=== PATIENT | female | born 1950 | race Caucasian/White ===

== ENCOUNTER 2017-12-15 10:05 | Emergency (ER) | payer MEDICARE, BC ==
[~2017-12-15] VITALS: Ht 170.2 cm; Wt 127.0 kg
[~2017-12-15 10:05] MED LIST: ATOR40TA59 PO; DULO60CA6 PO; HYDR25TA9 PO; LEVO175T5 PO; LEVO500T59 PO; MELO7.5T29 PO; OMEP20TA63 PO; OXYC-323 PO; QUIN20TA17 PO; TRAZ-85 PO
--- NOTE | 2017-12-15 10:42 | PHYS DOC ---
Past History Past Medical History: Arthritis, Hypertension Past Surgical History: Hip Replacement, Knee Replacement Alcohol Use: None Drug Use: None Adult General Chief Complaint Chief Complaint: MECHANICAL FALL HPI HPI Patient is a 67 year old female who presents with complaint of right wrist, knee , and elbow pain. Patient states that she suffered an accidental fall outdoors shortly prior to arrival. Patient states that while working in her garden she lost her balance and fell onto her right side. Patient states that she scraped her right knee but states that she has been able to bear full weight and ambulate without difficulty since the fall. Patient states that the area on her body that hurts the worst is her right wrist. Patient states that she did fall onto her wrist and elbow but did not hit her head or lose consciousness. Patient is not currently on any blood thinners. Patient states that she is able to move her right elbow normally and does not feel that she has any broken bones but is concerned most about her right wrist. Patient has not taken medications since her fall. Patient rates her pain on my evaluation as 8 out of 10. Review of Systems Review of Systems Constitutional: Denies fever or chills [] Eyes: Denies change in visual acuity, redness, or eye pain [] HENT: Denies nasal congestion or sore throat [] Respiratory: Denies cough or shortness of breath [] Cardiovascular: Denies chest pain or edema[] GI: Denies abdominal pain, nausea, vomiting, bloody stools or diarrhea [] : Denies dysuria or hematuria [] Musculoskeletal: Right wrist pain, right knee pain, right elbow pain[] Integument: Denies rash or skin lesions [] Neurologic: Denies headache, focal weakness or sensory changes [] All other systems were reviewed and found to be within normal limits, except as documented in this note. Allergies Allergies Allergies Coded Allergies Type Severity Reaction Last Updated Verified codeine Allergy Intermediate 07/24/14 Yes morphine Allergy Intermediate 07/24/14 Yes Physical Exam Physical Exam Constitutional: Alert, afebrile, no acute distress. [] HENT: Normocephalic, atraumatic, bilateral external ears normal, oropharynx moist, no oral exudates, nose normal. [] Eyes: PERRLA, EOMI, conjunctiva normal, no discharge. [] Neck: Normal range of motion, no tenderness, supple, no stridor. [] Cardiovascular:Heart rate regular rhythm, no murmur [] Lungs & Thorax: Bilateral breath sounds clear to auscultation [] Abdomen: Bowel sounds normal, soft, no tenderness, no masses, no pulsatile masses. [] Skin: Warm, dry, no erythema, no rash. [] Back: No tenderness, no CVA tenderness. [] Extremities: Dorsal right wrist tenderness towards base of right thumb, limited range of motion in right wrist secondary to pain, full range of motion in right elbow with minimal tenderness to palpation, anterior abrasion overlying right knee with lateral soft tissue swelling, full range of motion present, pulses 2+ distally in all extremities. [] Neurologic: Alert and oriented X 3, normal motor function, normal sensory function, no focal deficits noted. [] Current Patient Data Vital Signs Vital Signs Date Time Temp Pulse Resp B/P (MAP) Pulse Ox O2 Delivery O2 Flow Rate FiO2 12/15/17 10:19 98.1 87 24 97 Room Air Lab Results None performed EKG EKG Not performed[] Radiology/Procedures Radiology/[place] [address] IMAGING REPORT Signed PATIENT: JACKY FRANKLIN ACCOUNT: [id number] : 1950 LOCATION: ER AGE: 67 SEX: F EXAM STATUS: PRE ER ORD. PHYSICIAN: CATINA LICONA MD REASON: right wrist injury PROCEDURE: WRIST 3V RIGHT 4 views of the right wrist without comparison for right wrist pain after fall. FINDINGS: There is no fracture, dislocation, or acute osseous abnormality identified. Advanced osteoarthritic changes are seen at the first carpometacarpal joint. No radiopaque foreign bodies. IMPRESSION: 1. No fracture or acute osseous abnormality. 2. Advanced osteoarthritis at the first carpometacarpal joint. Electronically signed by: Melvi Schuster MD (12/15/2017 10:40 AM) [facility] DICTATED AND SIGNED BY: MELVI SCHUSTER MD DATE: 12/15/17 1038 CC: CATINA LICONA MD ~ [] Course & Med Decision Making Course & Med Decision Making Pertinent Labs and Imaging studies reviewed. (See chart for details) X-rays of the right wrist are negative. Patient's symptoms appear consistent with right wrist sprain. Patient was given Velcro wrist splint in the emergency department for comfort. Advised to continue with gentle range of motion as tolerated. Advised use Tylenol as needed as directed on packaging for treatment of pain. Recommended follow-up in 1 week with primary doctor for reevaluation and return to emergency department for any worsening symptoms. Patient was understanding and agreement with treatment plan. Dragon Disclaimer Dragon Disclaimer This electronic medical record was generated, in whole or in part, using a voice recognition dictation system. Departure Departure: Impression: Primary Impression: Right wrist sprain Additional Impressions: Contusion of right knee Contusion of right elbow Fall from standing Disposition: 01 HOME, SELF-CARE Condition: STABLE Patient Instructions: Contusion, Joint Sprain Additional Instructions: Follow-up with her primary doctor in 1 week for reevaluation. Return to the emergency department for any worsening symptoms. Problem Qualifiers Primary Impression: Right wrist sprain Encounter type: initial encounter Qualified Codes: S63.501A - Unspecified sprain of right wrist, initial encounter Additional Impressions: Contusion of right knee Encounter type: initial encounter Qualified Codes: S80.01XA - Contusion of right knee, initial encounter Contusion of right elbow Encounter type: initial encounter Qualified Codes: S50.01XA - Contusion of right elbow, initial encounter Fall from standing Encounter type: initial encounter Qualified Codes: W19.XXXA - Unspecified fall, initial encounter CATINA LICONA MD Dec 15, 2017 10:42
[2017-12-15 12:45] VITALS: BP 138/80
== END 2017-12-15 11:50 | disposition home or self-care (01) ==
LOC: ER 10:05
DX: S63.501A Unspecified sprain of right wrist, initial encounter (principal); S80.01XA Contusion of right knee, initial encounter; S50.01XA Contusion of right elbow, initial encounter; M19.90 Unspecified osteoarthritis, unspecified site; I10 Essential (primary) hypertension; Z88.5 Allergy status to narcotic agent; M18.9 Osteoarthritis of first carpometacarpal joint, unspecified; Z96.649 Presence of unspecified artificial hip joint; Z96.659 Presence of unspecified artificial knee joint; W19.XXXA Unspecified fall, initial encounter; Y93.89 Activity, other specified; Y92.89 Other specified places as the place of occurrence of the external cause; Y99.8 Other external cause status
CPT/HCPCS: 29125; 73110; 99284

== ENCOUNTER → 2019-04-16 | Outpatient (CLI) | payer MEDICARE, BC ==
[~2019-04-16] MED LIST changes: +HYDR-2145 PO; -HYDR25TA9 PO; -OXYC-323 PO; +OXYC1TAB15 PO; +TRAZ-120 PO; -TRAZ-85 PO
--- NOTE | 2019-04-17 10:52 | RAD ---
Bone Densitometry History: Osteoporosis Findings: Bone Densitometry was performed with dual photon absorption of the lumbar spine and proximal femurs. Lumbar Spine: Bone density is 1.552 g/cm2 for L1-L4. T-score is 3.1. Z-score is 3.6. Left forearm: Bone density is 0.756 g/cm2. T-score is 0.6. Z-score is 2.1. IMPRESSION: Bone mineral densities of the lumbar spine and left forearm are normal. Lumbar spine bone mineral density results may be artifactually elevated due to degenerative change. World Health Organization definition of osteoporosis and osteopenia for women: normal equals T score at or above -1.0 standard deviations; osteopenia equals T score between -1.0 and -2.5 standard deviations; osteoporosis equals T score at or below -2.5 standard deviations. Electronically signed by: Sean Castanon MD (04/17/2019 10:49 AM) [facility]
== END | disposition home or self-care (01) ==
LOC: DXRAD 10:12
PROVIDERS: ATTEND Neurological Surgery
DX: M81.0 Age-related osteoporosis without current pathological fracture (principal)
CPT/HCPCS: 77080; 77081

== ENCOUNTER → 2020-11-12 | Outpatient (CLI) | payer MEDICARE, BC ==
--- NOTE | 2020-11-12 18:27 | RAD ---
EXAM: CT Chest without IV contrast CLINICAL HISTORY: LEFT RIB PAIN, NO INJURY, PAINFUL TO TAKE DEEP INSPIRATION COMPARISON: None. TECHNIQUE: CT of the chest without intravenous contrast. Axial, coronal and sagittal reformatted imag es were generated. ---PQRS compliance statement - One or more of the following individualized dose reduction techniques were utilized for this study: 1. Automated exposure control 2. Adjustment of the mA and/or kV according to patient size 3. Use of iterative reconstruction technique--- FINDINGS: Lack of intravenous contrast limits evaluation of solid organs, vasculature, and lymph nodes. Chest: Heart is not enlarged. No pericardial effusion. No pleural effusion or pneumothorax. No mediastinal or hilar lymphadenopathy. No axillary lymphadenopathy. 4 mm lingular lymph node. 6 mm right lower lobe lung nodule (series 2 image 70). 4 mm right lower lob e lung nodule (series 2 image 58). A few additional <6 mm lung nodules are seen. Visualized Upper abdomen: Unremarkable Bones: Degenerative changes of spine are seen. No definite rib fractures identified. No aggressive os seous lesion is seen. IMPRESSION: 1. No definite rib fracture is seen. 2. Multiple lung nodules are seen measuring less than 6 mm. Per Fleischner Society guidelines for in cidentally found solid nodules measuring less than 6 mm, no follow-up is necessary if patient is cons idered at low risk for lung cancer. If patient is considered to be at high risk, such as with history of smoking, then CT follow-up in about 12 months can be considered. Electronically signed by: Ced Abarca MD (11/12/2020 6:24 PM) [facility]
== END ==
LOC: RAD 17:50
PROVIDERS: ATTEND Nurse Practitioner Adult Health
DX: S22.32XA Fracture of one rib, left side, initial encounter for closed fracture (principal); R91.8 Other nonspecific abnormal finding of lung field; X58.XXXA Exposure to other specified factors, initial encounter; Y93.89 Activity, other specified; Y92.89 Other specified places as the place of occurrence of the external cause; Y99.8 Other external cause status
CPT/HCPCS: 71250

== ENCOUNTER → 2020-11-30 | Outpatient (CLI) | payer MEDICARE, BC ==
--- NOTE | 2020-11-30 16:07 | RAD ---
BILATERAL SCREENING MAMMOGRAM History: Routine screening. Comparison: Bilateral mammogram August 17, 2015. Technique: Routine digital mammogram views were obtained. Findings: Breast Tissue Density A : The breasts are almost entirely fatty. There are a few benign calcifications. There are no dominant masses, suspicious microcalcifications or architectural distortion. IMPRESSION: No mammographic evidence of malignancy. Recommend routine screening. BI-RADS category 1: Negative. The images were reviewed with computer aided detection. Patient information is entered into the reminder system with a target due date for the next screening mammogram. Mammography is the most sensitive method for finding small breast cancers, but it does not detect the m all and is not a substitute for careful clinical examination. A negative mammogram does not negate a clinically suspicious finding and should not result in delay in biopsying a clinically suspicious a bnormality. "Our facility is accredited by the [employer] Mammography Program." Electronically signed by: Kaleb May MD (11/30/2020 4:05 PM) [id number]
== END ==
LOC: MAMMO 10:52
PROVIDERS: ATTEND Nurse Practitioner Adult Health
DX: Z12.31 Encounter for screening mammogram for malignant neoplasm of breast (principal)
CPT/HCPCS: 77067

== ENCOUNTER 2021-09-18 17:16 | Emergency (ER) | payer MEDICARE, BC ==
[~2021-09-18] VITALS: Ht 170.2 cm; Wt 144.0 kg
[~2021-09-18 17:16] MED LIST changes: -DULO60CA6 PO; +DULO60CA7 PO
[2021-09-18 17:50] VITALS: BP 166/92
--- NOTE | 2021-09-18 17:55 | PHYS DOC ---
Past History Past Medical History: Arthritis, Hypertension Past Surgical History: Hip Replacement, Knee Replacement Alcohol Use: None Drug Use: None General Adult EDM: Chief Complaint: MECHANICAL FALL HPI: HPI: "I ve been out at [employer] all day.. made about 125 bucks.. but and linda tripped with my Lt. leg.. then went down on my RT leg.. 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 Patient has had previous knee replacement on the right. Can do straight leg lift. Does have some obvious swelling in the ankle area and tenderness along tibial plateau as well as an anterior paz. Patient is able to feel sensation and is equal to left foot. Patient has extensive medical history including bilateral hips replacement obesity, hypertension, spinal stenosis, and urinary tract infections.. Patient normally follows with Tamiko Caballero for primary. Review of Systems: Review of Systems: Constitutional: Denies fever or chills Eyes: Denies change in visual acuity HENT: Denies nasal congestion or sore throat Respiratory: Denies cough or shortness of breath Cardiovascular: Denies chest pain or edema GI: Denies abdominal pain, nausea, vomiting, bloody stools or diarrhea : Denies dysuria Musculoskeletal: Complains of ankle and leg sprain left Integument: Denies rash Neurologic: Denies headache, focal weakness or sensory changes Endocrine: Denies polyuria or polydipsia Lymphatic: Denies swollen glands Psychiatric: Denies depression or anxiety Family History: Family History: Noncontributory the presentation Current Medications: Current Meds: See nursing for home meds Allergies: Allergies: Allergies Coded Allergies Type Severity Reaction Last Updated Verified codeine Allergy Intermediate 07/24/14 Yes morphine Allergy Intermediate 07/24/14 Yes Physical Exam: PE: Constitutional: Moderate acute distress, non-toxic appearance. [] HENT: Normocephalic, atraumatic, bilateral external ears normal, oropharynx moist, no oral exudates, nose normal. [] Eyes: PERRLA, EOMI, conjunctiva normal, no discharge. [] Neck: Normal range of motion, no tenderness, supple, no stridor. Circumference more than 17 inches Cardiovascular:Heart rate regular rhythm, no murmur [] PMI slightly to left. Lungs & Thorax: Bilateral breath sounds equal apex with scattered wheezes auscultation [] Abdomen: Bowel sounds normal, soft, no tenderness, no masses, no pulsatile masses. Obese. Old surgery scars Skin: Warm, dry, no erythema, no rash. [] Back: No tenderness, no CVA tenderness. [] Extremities: No tenderness, no cyanosis, no clubbing, ROM intact, no edema. [] Except right leg injury and tenderness as per HPI. No cording appreciated Neurologic: Alert and oriented X 3, moves all extremities on request but guarded with right lower leg. Limited range of motion., no focal deficits noted. [] Psychologic: Affect anxious, judgement normal, mood normal. [] EKG: EKG: [] Radiology/Procedures: Radiology/Procedures: [][place] [address] IMAGING REPORT Signed PATIENT: JACKY FRANKLINCCOUNT: [id number] : 1950 LOCATION: ER AGE: 71 SEX: F EXAM STATUS: REG ER ORD. PHYSICIAN: IVELISSE COYLE MD REASON: fall PROCEDURE: TIBIA FIBULA RIGHT EXAM: 1. Right tibia/fibula 2 views. 2. Right ankle 3 views. HISTORY: Fall, pain. COMPARISON: None. FINDINGS: A right total knee arthroplasty is partially visualized in expected alignment. No fractures are noted within the proximal tibia/fibula. There are projectional limitations with rotation of the lateral projections. No fractures are appreciated about the right ankle. Joint spaces and alignment of the mortise are maintained. Changes of a chronic ligamentous injury are noted at the tip of the medial malleolus. Subcutaneous edema is noted along the distal leg. There is a small plantar calcaneal spur. IMPRESSION: 1. No fracture. Electronically signed by: Laura Dumont MD (09/18/2021 7:58 PM) [facility] DICTATED AND SIGNED BY: ELVER DUMONT MD DATE: 09/18/211939 CC: IVELISSE COYLE MD; JIM CABALLERO APRN ~ Heart Score: C/O Chest Pain: N/A Risk Factors: Risk Factors: DM, Current or recent (<one month) smoker, HTN, HLP, family history of CAD, obesity. Risk Scores: Score 0 - 3: 2.5% MACE over next 6 weeks - Discharge Home Score 4 - 6: 20.3% MACE over next 6 weeks - Admit for Clinical Observation Score 7 - 10: 72.7% MACE over next 6 weeks - Early Invasive Strategies Course & Med Decision Making: Course & Med Decision Making Pertinent Labs and Imaging studies reviewed. (See chart for details) Ice, elevation, rest, splint, crutches. Tylenol and ibuprofen for pain. Follow-up with Ortho of choice. Impression: 1. Trip and fall 2. Right ankle sprain [] Dragon Disclaimer: Dragon Disclaimer: This electronic medical record was generated, in whole or in part, using a voice recognition dictation system. Departure Departure: Referrals: JIM CABALLERO APRN (PCP) Dragon Disclaimer This chart was dictated in whole or in part using Voice Recognition software in a busy, high-work load, and often noisy Emergency Department environment. It may contain unintended and wholly unrecognized errors or omissions. Dragon Disclaimer This chart was dictated in whole or in part using Voice Recognition software in a busy, high-work load, and often noisy Emergency Department environment. It may contain unintended and wholly unrecognized errors or omissions. IVELISSE COYLE MD September 18, 2021 17:55
[2021-09-18] MEDS ORDERED: oxyCODONE/APAP 5/325 1 TAB TABLET PO ONE (18:30)
[2021-09-18] MEDS ORDERED: ONDANSETRON ODT 4 MG TAB.RAPDIS PO ONE (18:30)
[2021-09-18] MEDS ORDERED: FUROSEMIDE 40 MG/4 ML VIAL IVP ONE (19:45)
--- NOTE | 2021-09-18 20:00 | RAD ---
EXAM: 1. Right tibia/fibula 2 views. 2. Right ankle 3 views. HISTORY: Fall, pain. COMPARISON: None. FINDINGS: A right total knee arthroplasty is partially visualized in expected alignment. No fractures are noted within the proximal tibia/fibula. There are projectional limitations with rotation of the lateral projections. No fractures are appreci ated about the right ankle. Joint spaces and alignment of the mortise are maintained. Changes of a ch ronic ligamentous injury are noted at the tip of the medial malleolus. Subcutaneous edema is noted al jack the distal leg. There is a small plantar calcaneal spur. IMPRESSION: 1. No fracture. Electronically signed by: Laura Dumont MD (09/18/2021 7:58 PM) [facility]
== END 2021-09-18 20:27 | disposition home or self-care (01) ==
LOC: ER 17:16
DX: S93.401A Sprain of unspecified ligament of right ankle, initial encounter (principal); M19.90 Unspecified osteoarthritis, unspecified site; I10 Essential (primary) hypertension; Z88.5 Allergy status to narcotic agent; W01.0XXA Fall on same level from slipping, tripping and stumbling without subsequent striking against object, initial encounter; Y93.89 Activity, other specified; Y92.89 Other specified places as the place of occurrence of the external cause; Y99.8 Other external cause status
CPT/HCPCS: 73590; 73610; 99284; Q0162